=== PATIENT | female | born 1975 | race Caucasian/White ===

== ENCOUNTER → 2018-08-03 | Outpatient (CLI) | payer BC ==
[~2018-08-03] MED LIST: LORTAB 5/500 501 TAB PO; PROMETHAZINE12.5 M5 PO
== END ==
LOC: MC.RAD 07:26
DX: Z12.31 Encounter for screening mammogram for malignant neoplasm of breast (principal)

== ENCOUNTER 2019-01-30 08:15 | Outpatient (RCR) | payer BC | END 2019-02-18 14:17 | disposition home or self-care (01) | LOC: WSST 08:15 | DX: R49.0 Dysphonia (principal) ==

== ENCOUNTER → 2019-06-11 | Outpatient (CLI) | payer BC | LOC: MHCPAIN 09:12 | DX: M54.12 Radiculopathy, cervical region (principal); M47.812 Spondylosis without myelopathy or radiculopathy, cervical region | CPT/HCPCS: G0463 ==

== ENCOUNTER → 2019-07-16 | Outpatient (CLI) | payer BC | LOC: COL.RAD 07-12 10:30 | DX: R74.0 Nonspecific elevation of levels of transaminase and lactic acid dehydrogenase [LDH] (principal) ==

== ENCOUNTER → 2019-08-06 | Outpatient (CLI) | payer BC | LOC: MHCPAIN 12:23 | DX: M47.812 Spondylosis without myelopathy or radiculopathy, cervical region (principal) | CPT/HCPCS: G0463 ==

== ENCOUNTER → 2020-08-13 | Outpatient (CLI) | payer BC | LOC: MC.RAD 08:36 | DX: Z12.31 Encounter for screening mammogram for malignant neoplasm of breast (principal); Z01.419 Encounter for gynecological examination (general) (routine) without abnormal findings ==